=== PATIENT | female | born 1985 | race Caucasian/White ===

== ENCOUNTER 2018-11-28 14:58 | Emergency (ER) | payer BC ==
[~2018-11-28] VITALS: Ht 167.6 cm; Wt 86.2 kg
[2018-11-28 15:41] LABS: BILIRUBIN,URINE NEGATIVE (NEG); CLARITY,URINE CLEAR; COLOR,URINE YELLOW; NITRITE,URINE NEGATIVE (NEG); PH,URINE 6.5; PROTEIN,URINE NEGATIVE (NEG-TRACE); UROBILINOGEN,URINE 0.2 mg/dL (0.2 mg/dL)
[2018-11-28] MEDS ORDERED: fentaNYL PF VIAL 100 MCG/2 ML VIAL IV ONE ×2 (15:45→17:30)
[2018-11-28] MEDS ORDERED: IV NORMAL SALINE 1000ML BAG 1,000 ML IV ONE (15:45)
[2018-11-28] MEDS ORDERED: PROMETHAZINE 12.5 MG TABLET. PO ONE (15:45)
[2018-11-28 15:46] LABS: BACTERIA,URINE 0 /HPF (0-FEW); RBC,URINE 0 /HPF (0-2); SQUAMOUS EPITHELIAL CELL,UR FEW /LPF; WBC,URINE 0 /HPF (0-4)
--- NOTE | 2018-11-28 16:04 | PHYS DOC ---
Adult General Chief Complaint Chief Complaint: URINARY RETENTION HPI HPI Patient is a 33 year old female who presents with 12 weeks 3 weeks ago was hospitalized at with a cholecystectomy May also found a kidney stone or urinary tract infection. Patient states 2 days ago she began having increased right flank pain and urinary retention. Patient states she went to a stand alone [facility] emergency room with a placed a Khan catheter and did a CT scan and sent her home. Patient states she called to get in to see the urologist and has an appointment on December 07. Patient states that the Khan catheter fell out with a balloon still full of fluid at home. Patient is rating her pain a 9 out of 10 and states she's been vomiting this morning. Review of Systems Review of Systems Constitutional: Denies fever or chills [] Eyes: Denies change in visual acuity, redness, or eye pain [] HENT: Denies nasal congestion or sore throat [] Respiratory: Denies cough or shortness of breath [] Cardiovascular: No additional information not addressed in HPI [] GI: Right lower abdominal pain, nausea, vomiting, denies bloody stools or diarrhea [] : Right flank pain. Urine retention. Denies dysuria or hematuria [] Musculoskeletal: Denies back pain or joint pain [] Integument: Denies rash or skin lesions [] Neurologic: Denies headache, focal weakness or sensory changes [] Endocrine: Denies polyuria or polydipsia [] All other systems were reviewed and found to be within normal limits, except as documented in this note. Current Medications Current Medications Current Medications Medications (Trade) Dose Ordered Sig/[facility] Start Time Stop Time Status Last Admin Dose Admin Fentanyl Citrate (Fentanyl 2ml Vial) 50 mcg 1X ONCE 11/28/18 17:30 11/28/18 17:31 DC 11/28/18 17:40 50 MCG Ketorolac Tromethamine (Toradol 30mg Vial) 30 mg 1X ONCE 11/28/18 18:15 11/28/18 18:16 DC 11/28/18 18:43 30 MG Ondansetron HCl (Zofran) 4 mg 1X ONCE 11/28/18 17:45 11/28/18 17:49 DC 11/28/18 18:00 4 MG Promethazine HCl (Phenergan) 12.5 mg 1X ONCE 11/28/18 15:45 11/28/18 16:35 DC 11/28/18 17:02 12.5 MG Sodium Chloride 1,000 ml @ 1,000 mls/hr 1X ONCE 11/28/18 15:45 11/28/18 16:44 DC 11/28/18 17:03 1,000 MLS/HR Allergies Allergies Allergies Coded Allergies Type Severity Reaction Last Updated Verified Iodinated Contrast- Oral and IV Dye Allergy Unknown 11/28/18 Yes scopolamine Allergy Unknown 11/28/18 Yes Physical Exam Physical Exam Constitutional: Well developed, well nourished, no acute distress, non-toxic appearance. [] HENT: Normocephalic, atraumatic, bilateral external ears normal, oropharynx moist, no oral exudates, nose normal. [] Eyes: PERRLA, EOMI, conjunctiva normal, no discharge. [] Neck: Normal range of motion, no tenderness, supple, no stridor. [] Cardiovascular:Heart rate regular rhythm, no murmur [] Lungs & Thorax: Bilateral breath sounds clear to auscultation [] Abdomen: Bowel sounds normal, soft, RLQ tenderness, no masses, no pulsatile masses. [] Skin: Warm, dry, no erythema, no rash. [] Back: No tenderness, CVA tenderness. [] Extremities: No tenderness, no cyanosis, no clubbing, ROM intact, no edema. [] Neurologic: Alert and oriented X 3, normal motor function, normal sensory function, no focal deficits noted. [] Psychologic: Affect normal, judgement normal, mood normal. [] Current Patient Data Vital Signs Vital Signs Date Time Temp Pulse Resp B/P (MAP) Pulse Ox O2 Delivery O2 Flow Rate FiO2 11/28/18 18:36 94 18 98 11/28/18 17:40 Room Air 11/28/18 15:20 98.2 147/101 (116) 98.2 Lab Values Laboratory Tests Test 11/28/18 15:35 11/28/18 16:55 Urine Collection Type Unknown Urine Color Yellow Urine Clarity Clear Urine pH 6.5 Urine Specific [place] <=1.005 Urine Protein Negative mg/dL (NEG-TRACE) Urine Glucose (UA) Negative mg/dL (NEG) Urine Ketones (Stick) Negative mg/dL (NEG) Urine Blood Negative (NEG) Urine Nitrite Negative (NEG) Urine Bilirubin Negative (NEG) Urine Urobilinogen Dipstick 0.2 mg/dL (0.2 mg/dL) Urine Leukocyte Esterase Negative (NEG) Urine RBC 0 /HPF (0-2) Urine WBC 0 /HPF (0-4) Urine Squamous Epithelial Cells Few /LPF Urine Bacteria 0 /HPF (0-FEW) Urine Opiates Screen Neg (NEG) Urine Methadone Screen Neg (NEG) Urine Barbiturates Neg (NEG) Urine Phencyclidine Screen Neg (NEG) Urine Amphetamine/Methamphetamine Neg (NEG) Urine Benzodiazepines Screen Neg (NEG) Urine Cocaine Screen Neg (NEG) Urine Cannabinoids Screen Neg (NEG) Urine Ethyl Alcohol Pos (NEG) White Blood Count 4.1 x10^3/uL (4.0-11.0) Red Blood Count 4.35 x10^6/uL (3.50-5.40) Hemoglobin 13.8 g/dL (12.0-15.5) Hematocrit 40.9 % (36.0-47.0) Mean Corpuscular Volume 94 fL (79-100) Mean Corpuscular Hemoglobin 32 pg (25-35) Mean Corpuscular Hemoglobin Concent 34 g/dL (31-37) Red Cell Distribution Width 15.1 % (11.5-14.5) H Platelet Count 447 x10^3/uL (140-400) H Neutrophils (%) (Auto) 68 % (31-73) Lymphocytes (%) (Auto) 26 % (24-48) Monocytes (%) (Auto) 3 % (0-9) Eosinophils (%) (Auto) 2 % (0-3) Basophils (%) (Auto) 1 % (0-3) Neutrophils # (Auto) 2.8 x10^3/uL (1.8-7.7) Lymphocytes # (Auto) 1.1 x10^3/uL (1.0-4.8) Monocytes # (Auto) 0.1 x10^3/uL (0.0-1.1) Eosinophils # (Auto) 0.1 x10^3/uL (0.0-0.7) Basophils # (Auto) 0.0 x10^3/uL (0.0-0.2) Sodium Level 143 mmol/L (136-145) Potassium Level 4.6 mmol/L (3.5-5.1) Chloride Level 105 mmol/L (98-107) Carbon Dioxide Level 25 mmol/L (21-32) Anion Gap 13 (6-14) Blood Urea Nitrogen 10 mg/dL (7-20) Creatinine 0.8 mg/dL (0.6-1.0) Estimated GFR (Cockcroft-Gault) 82.6 BUN/Creatinine Ratio 13 (6-20) Glucose Level 93 mg/dL (70-99) Calcium Level 9.2 mg/dL (8.5-10.1) Total Bilirubin 0.1 mg/dL (0.2-1.0) L Aspartate Amino Transferase (AST) 59 U/L (15-37) H Alanine Aminotransferase (ALT) 65 U/L (14-59) H Alkaline Phosphatase 177 U/L (46-116) H Total Protein 8.4 g/dL (6.4-8.2) H Albumin 4.3 g/dL (3.4-5.0) Albumin/Globulin Ratio 1.0 (1.0-1.7) Ethyl Alcohol Level 186 mg/dL (0-10) H Laboratory Tests 11/28/18 16:55 Laboratory Tests 11/28/18 16:55 EKG EKG [] Radiology/Procedures Radiology/Procedures [] Impressions: [facility] [address] [place] [address] IMAGING REPORT Signed PATIENT: TAE FLETCHER ACCOUNT: [id number] : 1985 LOCATION: ER AGE: 33 SEX: F EXAM STATUS: REG ER ORD. PHYSICIAN: SOY CLEMENTE APRN REASON: urinary retent,flank pain,hx kid stone & uti;450 putting in IV PROCEDURE: RENAL COMPLETE BILATERAL RENAL COMPLETE BILATERAL: 11/28/2018 3:41 PM Indication: 33 years old Female. Urinary retention. History of kidney stones. Comparison: None. FINDINGS: Sonographic evaluation of the kidneys is performed utilizing grayscale and color Doppler. Right kidney: Size: 11.2 x 3.5 x 3.6cm. Collecting System: No hydronephrosis. No renal calculi detected. Parenchyma: Normal echotexture and morphology. No focal contour deforming renal mass. Left kidney: Size: 10.5 x 5.3 x 5.1cm. Collecting System: No hydronephrosis. No renal calculi detected. Parenchyma: Normal echotexture and morphology. No focal contour deforming renal mass. Urinary bladder: Decompressed by a Khan catheter. IMPRESSION: No sonographic evidence for obstructive uropathy. Electronically signed by: Tana Linton MD (11/28/2018 6:27 PM) [facility] DICTATED and SIGNED BY: TANA LINTON MD DATE: 11/28/181826 Course & Med Decision Making Course & Med Decision Making Patient is a 33 year old female who presents with 12 weeks 3 weeks ago was hospitalized at with a cholecystectomy May also found a kidney stone or urinary tract infection. Patient states 2 days ago she began having increased right flank pain and urinary retention. Patient states she went to a [facility] emergency room with a placed a Khan catheter and did a CT scan and sent her home. Patient states she called to get in to see the urologist and has an appointment on December 07. Patient states that the Khan catheter fell out with a balloon still full of fluid at home. Patient is rating her pain a 9 out of 10 and states she's been vomiting this morning. CVA tenderness bilaterally. Right lower quadrant pain with pressure palpation only. Patient is tachycardia but no fever and otherwise normal vital signs. Skin is pink warm and dry. Mucus membranes moist. Speaks in full clear sentences. PERRLA. Lungs are clear to auscultation all lobes. Abdomen is otherwise soft. Khan catheter is placed and patient the ED today. Patient had 1800 mL drain from her bladder. After Khan catheter placed the catheter fell out with 10 mL balloon still inflated. Another Khan catheters placed with a 30 mL balloon. Blood work unremarkable. Renal ultrasound shows no acute findings. Urinalysis sh ows no infection. Patient is still in extreme pain and states that the Khan catheters keep coming out of her urethra. A total of 3 Khan catheters have been replaced so far with 2 of them being 30ml balloons. The first 30ml balloon khan came out empty and we reinflated it to see if there was a leak and there was no leak and it has been inflated for over 1.5hrs. The second 30ml balloon Khan the patient complained was at her urethra and the nurse states she could see the khan balloon bulging from urethra. The patient is asking for it to be removed. The nurse left and when she returned with a syringe to deflated the balloon in the khan the patient had already taken the khan out and it was in the trash. Patient states she is still having severe right flank pain and feels as all she's having bladder spasms. Patient is asking for her Khan to be taken out because she feels it is down to far in her return and is hurting. Patient is rating her pain a 10 out of 10. She had a total of 100mcg of fentanyl, 30mg of Toradol, 8 mg Zofran, 25mg Phenergan. Patient states she is still feeling n auseated and in pain. Patient is positive for alcohol. Patient is asking nursing staff for more pain medications and nausea medication. Patient asks nurse "what time the COUNTER PROFESSIONAL is leaving". I have spoken to Dr Murillo about this patient. This whole thing is suspicious. Alcohol can lead to urinary retention. Patient will have another 30ml balloon khan placed and patient will be observed and walked out of the hospital. Patient to follow up with urology appointment as planned. I will also give her oxybutynin and pain medication. 1950: Nurse states that she is unable to get full catheter in place due to urethra swelling. Patient states that she supposed to be getting straight catheter supplies tomorrow but she does not know when she would like for us to give her a couple straight catheter to go home with. Patient is given 2 straight catheters to go home with. Dragon Disclaimer Dragon Disclaimer This electronic medical record was generated, in whole or in part, using a voice recognition dictation system. Departure Departure Impression: Primary Impression: Urinary retention Additional Impression: Flank pain Disposition: HOME, SELF-CARE Condition: STABLE Referrals: MARINA PHILLIPS MD Patient Instructions: Urinary Retention, Acute, Female Additional Instructions: Follow up as scheduled with Urology at . I have also given you our Urologist you can follow up with if you so wish. Scripts Promethazine HCl (Phenergan) 12.5 Mg Supp.rect 12.5 MG RC Q4HRS, #10 SUPP.RECT Prov: SOY CLEMENTE KEY ACCOUNT COORDINATOR 11/28/18 Oxybutynin Chloride (OXYBUTYNIN CHLORIDE) 5 Mg Tablet 5 MG PO BID for 10 Days, #20 TAB Prov: SOY CLEMENTE APRN 11/28/18 Hydrocodone Bit/Acetaminophen (HYDROCODONE-APAP 5-325 ) 1 Tab Tablet 1 TAB PO PRN Q6HRS PRN for PAIN, #10 TAB 0 Refills Prov: SOY CLEMENTE APRN 11/28/18 Problem Qualifiers SOY CLEMENTE APRN Nov 28, 2018 16:04
[2018-11-28 17:10] LABS: BASO % 1 % (0-3); EOS # 0.1 x10^3/uL (0.0-0.7); EOS % 2 % (0-3); HEMATOCRIT 40.9 % (36.0-47.0); HEMOGLOBIN 13.8 g/dL (12.0-15.5); LYMPH # 1.1 x10^3/uL (1.0-4.8); LYMPH % 26 % (24-48); MEAN CORPUSCULAR HEMOGLOBIN 32 pg (25-35); MEAN CORPUSCULAR HGB CONC 34 g/dL (31-37); MEAN CORPUSCULAR VOLUME 94 fL (79-100); MONO # 0.1 x10^3/uL (0.0-1.1); MONO % 3 % (0-9); NEUT # 2.8 x10^3/uL (1.8-7.7); NEUT % 68 % (31-73); PLATELET COUNT 447 x10^3/uL (140-400); RED BLOOD COUNT 4.35 x10^6/uL (3.50-5.40); RED CELL DISTRIBUTION WIDTH 15.1 % (11.5-14.5); WHITE BLOOD COUNT 4.1 x10^3/uL (4.0-11.0)
[2018-11-28 17:26] LABS: CALCIUM 9.2 mg/dL (8.5-10.1); CREATININE 0.8 mg/dL (0.6-1.0); GFR 82.6; POTASSIUM 4.6 mmol/L (3.5-5.1)
[2018-11-28 17:32] LABS: ALBUMIN 4.3 g/dL (3.4-5.0); TOTAL BILIRUBIN 0.1 mg/dL (0.2-1.0); TOTAL PROTEIN 8.4 g/dL (6.4-8.2)
[2018-11-28 17:40] LABS: BARBITURATES NEG (NEG); BENZODIAZEPINES NEG (NEG); CANNABINOIDS NEG (NEG); COCAINE NEG (NEG); METHADONE NEG (NEG); OPIATES NEG (NEG); PHENCYCLIDINE NEG (NEG)
[2018-11-28 17:42] LABS: AMPHETAMINE/METHAMPHETAMINE NEG (NEG)
[2018-11-28] MEDS ORDERED: ONDANSETRON PF 4 MG/2 ML VIAL. IV ONE (17:45)
[2018-11-28] MEDS ORDERED: KETOROLAC 30 MG/ML VIAL. IV ONE (18:15)
--- NOTE | 2018-11-28 18:29 | RAD ---
RENAL COMPLETE BILATERAL: 11/28/2018 3:41 PM Indication: 33 years old Female. Urinary retention. History of kidney stones. Comparison: None. FINDINGS: Sonographic evaluation of the kidneys is performed utilizing grayscale and color Doppler. Right kidney: Size: 11.2 x 3.5 x 3.6cm. Collecting System: No hydronephrosis. No renal calculi detected. Parenchyma: Normal echotexture and morphology. No focal contour deforming renal mass. Left kidney: Size: 10.5 x 5.3 x 5.1cm. Collecting System: No hydronephrosis. No renal calculi detected. Parenchyma: Normal echotexture and morphology. No focal contour deforming renal mass. Urinary bladder: Decompressed by a Newman catheter. IMPRESSION: No sonographic evidence for obstructive uropathy. Electronically signed by: Brielle Ramirez MD (11/28/2018 6:27 PM) [facility]
[2018-11-28] MEDS ORDERED: OXYB5TAB7 PO (19:10)
[2018-11-28] MEDS ORDERED: HYDR-2761 PO (19:10)
[2018-11-28] MEDS ORDERED: PROM12.553 RC (19:27)
[2018-11-28 19:36] VITALS: BP 125/64
== END 2018-11-28 19:52 | disposition home or self-care (01) ==
LOC: ER 14:58
DX: R10.31 Right lower quadrant pain (principal); R33.9 Retention of urine, unspecified; R11.2 Nausea with vomiting, unspecified; Z90.49 Acquired absence of other specified parts of digestive tract; Z91.041 Radiographic dye allergy status; Z88.8 Allergy status to other drugs, medicaments and biological substances
CPT/HCPCS: 36415; 76770; 80053; 80307; 81001; 85025; 96361; 96374; 96375; 96376; 99285; G0480; J1885; J2405; J3010; J7030; Q0169